=== PATIENT | male | born 1995 | race Hispanic/Latino ===

== ENCOUNTER 2021-09-16 09:08 | Emergency (ER) | payer OTHER ==
[~2021-09-16] VITALS: Ht 177.8 cm; Wt 92.1 kg
[2021-09-16 09:09] VITALS: BP 162/88
== END 2021-09-16 10:10 | disposition home or self-care (01) ==
LOC: M ED 09:08
DX: Z11.52 Encounter for screening for COVID-19 (principal); J06.9 Acute upper respiratory infection, unspecified; Z20.822 Contact with and (suspected) exposure to COVID-19
CPT/HCPCS: 99282; U0003

== ENCOUNTER 2023-01-12 15:46 | Emergency (ER) | payer OTHER ==
[~2023-01-12] VITALS: Ht 170.2 cm; Wt 93.9 kg
[2023-01-12] MEDS ORDERED: KETOROLAC 60MG 2ML VIAL IM ONE (16:25)
[2023-01-12] MEDS ORDERED: diazePAM 10 MG TAB PO ONE (16:25)
[2023-01-12] MEDS ORDERED: LIDOCAINE 5% (LIDODERM) PATCH TD ONE (16:25)
[2023-01-12 16:44] LABS: BASO # 0.1 10^3/uL (0.0-0.2); BASO % 0.6 % (0.0-1.0); EOS # 0.4 10^3/uL (0.0-0.5); EOS % 4.9 % (0.0-3.0); HEMOGLOBIN 15.4 g/dl (13.5-17.5); LYMPH # 2.3 10^3/uL (1.5-5.0); LYMPH % 25.4 % (24.0-44.0); MEAN CORPUSCULAR HEMOGLOBIN 27.3 pg (27.0-33.0); MEAN CORPUSCULAR HGB CONC 32.8 g/dl (32.0-36.5); MEAN CORPUSCULAR VOLUME 83.2 fl (80.0-96.0); MONO # 0.6 10^3/uL (0.0-0.8); NEUTROPHILS # 5.6 10^3/uL (1.5-8.5); NEUTROPHILS % 61.8 % (36.0-66.0); PLATELET COUNT, AUTOMATED 321 10^3/uL (150-450); RED BLOOD COUNT 5.65 10^6/uL (4.30-6.10)
[2023-01-12 17:05] LABS: BLOOD UREA NITROGEN 15 MG/DL (9-23); CALCIUM LEVEL 8.9 MG/DL (8.5-10.1); CARBON DIOXIDE LEVEL 28 MMOL/L (20-31); CHLORIDE LEVEL 104 MMOL/L (98-107); CREATININE FOR GFR 0.89 MG/DL (0.70-1.30); GLOMERULAR FILTRATION RATE > 60.0 (>60); GLUCOSE, FASTING 90 MG/DL (60-100); POTASSIUM SERUM 4.1 MMOL/L (3.5-5.1); SODIUM LEVEL 139 MMOL/L (136-145)
[2023-01-12 17:07] LABS: CPK CREATINE PHOSPHOKINASE 199 U/L (46-171)
[2023-01-12 17:59] VITALS: BP 142/61
[2023-01-12] MEDS ORDERED: METH-1165 PO (18:04)
[2023-01-12] MEDS ORDERED: ASPE4PAD TOP (18:04)
[2023-01-12] MEDS ORDERED: NAPR-837 PO (18:04)
== END 2023-01-12 18:15 | disposition home or self-care (01) ==
LOC: M ED 15:46
DX: S30.810A Abrasion of lower back and pelvis, initial encounter (principal); M54.16 Radiculopathy, lumbar region; M54.17 Radiculopathy, lumbosacral region; Z79.1 Long term (current) use of non-steroidal anti-inflammatories (NSAID); Z79.899 Other long term (current) drug therapy
CPT/HCPCS: 72110; 73502; 80048; 82550; 85025; 96372; 99283; J1885

== ENCOUNTER 2023-02-01 09:27 | Emergency (ER) | payer OTHER ==
[~2023-02-01] VITALS: Ht 170.2 cm; Wt 89.0 kg
[~2023-02-01 09:27] MED LIST: ASPE4PAD TOP; METH-1165 PO; NAPR-837 PO
[2023-02-01] MEDS ORDERED: LIDOCAINE 5% (LIDODERM) PATCH TD ONE (10:35)
[2023-02-01] MEDS ORDERED: NAPR-837 PO (10:37)
[2023-02-01] MEDS ORDERED: CYCL-707 PO (10:37)
[2023-02-01] MEDS ORDERED: NAPROXEN 250 MG TAB PO ONE (10:40)
[2023-02-01 10:54] VITALS: BP 122/81
== END 2023-02-01 11:02 | disposition home or self-care (01) ==
LOC: M ED 09:27
DX: S39.012A Strain of muscle, fascia and tendon of lower back, initial encounter (principal); M51.36 Other intervertebral disc degeneration, lumbar region; M46.97 Unspecified inflammatory spondylopathy, lumbosacral region; Y93.B3 Activity, free weights; Z79.1 Long term (current) use of non-steroidal anti-inflammatories (NSAID); Z79.899 Other long term (current) drug therapy

== ENCOUNTER 2023-12-28 09:51 | Emergency (ER) | payer OTHER ==
[~2023-12-28] VITALS: Ht 172.7 cm; Wt 99.8 kg
[~2023-12-28 09:51] MED LIST changes: +CYCL-707 PO
[2023-12-28] MEDS ORDERED: ACET-683 PO (10:18)
[2023-12-28] MEDS: ACETAMINOPHEN *IV* 1,000 MG in IV 1 EA IV ONE (11:30)
[2023-12-28 12:17] LABS: BASO # 0.1 10^3/uL (0.0-0.2); BASO % 0.7 % (0.0-1.0); EOS # 0.5 10^3/uL (0.0-0.5); EOS % 5.1 % (0.0-3.0); HEMATOCRIT 47.7 % (42.0-52.0); HEMOGLOBIN 15.6 g/dl (13.5-17.5); LYMPH # 2.3 10^3/uL (1.5-5.0); LYMPH % 25.7 % (24.0-44.0); MEAN CORPUSCULAR HEMOGLOBIN 26.9 pg (27.0-33.0); MEAN CORPUSCULAR HGB CONC 32.7 g/dl (32.0-36.5); MEAN CORPUSCULAR VOLUME 82.4 fl (80.0-96.0); MONO # 0.7 10^3/uL (0.0-0.8); MONO % 7.8 % (2.0-8.0); NEUTROPHILS # 5.4 10^3/uL (1.5-8.5); NEUTROPHILS % 60.5 % (36.0-66.0); PLATELET COUNT, AUTOMATED 337 10^3/uL (150-450); RED BLOOD COUNT 5.79 10^6/uL (4.30-6.10)
[2023-12-28 12:24] LABS: ERYTHROCYTE SEDIMENTATION RATE 15 mm/hr (0-15)
[2023-12-28 12:30] LABS: INR 1.02; PARTIAL THROMBOPLASTIN TIME 27.6 SECONDS (24.8-34.2); PROTHROMBIN TIME 13.1 SECONDS (12.5-14.5)
[2023-12-28 12:36] LABS: C REACTIVE PROTEIN QUANTITATIV < 0.40 MG/DL (<1.0)
[2023-12-28 12:37] LABS: BLOOD UREA NITROGEN 11 MG/DL (9-23); CALCIUM LEVEL 9.7 MG/DL (8.5-10.1); CARBON DIOXIDE LEVEL 31 MMOL/L (20-31); CHLORIDE LEVEL 107 MMOL/L (98-107); CK-MB VALUE MASS < 1.0 NG/ML (<3.6); CREATININE FOR GFR 0.89 MG/DL (0.70-1.30); GLOMERULAR FILTRATION RATE > 60.0 (>60); GLUCOSE, FASTING 91 MG/DL (60-100); POTASSIUM SERUM 4.4 MMOL/L (3.5-5.1); SODIUM LEVEL 140 MMOL/L (136-145)
[2023-12-28 12:46] LABS: CPK CREATINE PHOSPHOKINASE 159 U/L (46-171); MB/CK RELATIVE INDEX 0.62 (< OR =4)
[2023-12-28] MEDS ORDERED: NEUR300C PO (13:33)
[2023-12-28 13:42] VITALS: BP 126/82; TEMP 97.6; O2SAT 100
== END 2023-12-28 13:45 | disposition home or self-care (01) ==
LOC: M ED 09:51
DX: R07.89 Other chest pain (principal); M51.26 Other intervertebral disc displacement, lumbar region; M51.27 Other intervertebral disc displacement, lumbosacral region; I49.40 Unspecified premature depolarization; F10.10 Alcohol abuse, uncomplicated; Z88.1 Allergy status to other antibiotic agents; Z88.6 Allergy status to analgesic agent; Z79.891 Long term (current) use of opiate analgesic; Z79.1 Long term (current) use of non-steroidal anti-inflammatories (NSAID)
CPT/HCPCS: 71046; 72131; 80048; 82550; 82553; 84484; 85025; 85610; 85652; 85730; 86140; 93005; 93971; 96374; 99284; J0131

== ENCOUNTER → 2024-01-20 | Outpatient (CLI) | payer OTHER ==
[~2024-01-20] MED LIST changes: +ACET-683 PO; +NEUR300C PO; +PROHANCE 279.3MG/ML 15ML VIAL ONE; +PROHANCE 279.3MG/ML 5ML VIAL ONE
== END ==
LOC: M PLAIMG 14:51
PROVIDERS: ATTEND Physical Medicine & Rehabilitation
DX: M47.897 Other spondylosis, lumbosacral region (principal); M51.26 Other intervertebral disc displacement, lumbar region; M51.27 Other intervertebral disc displacement, lumbosacral region
CPT/HCPCS: 72158; A9576

== ENCOUNTER 2024-02-14 12:57 | Emergency (ER) | payer OTHER ==
[~2024-02-14] VITALS: Ht 172.7 cm; Wt 100.9 kg
[~2024-02-14 12:57] MED LIST changes: -PROHANCE 279.3MG/ML 15ML VIAL ONE; -PROHANCE 279.3MG/ML 5ML VIAL ONE
[2024-02-14] MEDS ORDERED: METH-1164 PO (20:42)
[2024-02-14] MEDS ORDERED: DICL20GE TP (20:43)
[2024-02-14 20:45] VITALS: BP 128/82; TEMP 98; O2SAT 99
== END 2024-02-14 20:52 | disposition home or self-care (01) ==
LOC: M ED 12:57
DX: M62.830 Muscle spasm of back (principal); M62.838 Other muscle spasm; F10.10 Alcohol abuse, uncomplicated; Z88.1 Allergy status to other antibiotic agents; Z88.6 Allergy status to analgesic agent; Z79.1 Long term (current) use of non-steroidal anti-inflammatories (NSAID); Z79.899 Other long term (current) drug therapy

== ENCOUNTER 2024-07-19 20:39 | Emergency (ER) | payer OTHER ==
[~2024-07-19] VITALS: Ht 170.2 cm; Wt 100.1 kg
[~2024-07-19 20:39] MED LIST changes: +DICL20GE TP; +METH-1164 PO
[2024-07-20 00:56] LABS: BASO # 0.1 10^3/uL (0.0-0.2); BASO % 0.8 % (0.0-1.0); EOS # 0.7 10^3/uL (0.0-0.5); EOS % 7.5 % (0.0-3.0); HEMOGLOBIN 15.2 g/dl (13.5-17.5); LYMPH # 2.9 10^3/uL (1.5-5.0); LYMPH % 31.2 % (24.0-44.0); MEAN CORPUSCULAR HEMOGLOBIN 27.2 pg (27.0-33.0); MEAN CORPUSCULAR VOLUME 82.4 fl (80.0-96.0); MONO # 0.9 10^3/uL (0.0-0.8); MONO % 9.4 % (2.0-8.0); NEUTROPHILS # 4.8 10^3/uL (1.5-8.5); NEUTROPHILS % 50.7 % (36.0-66.0); PLATELET COUNT, AUTOMATED 327 10^3/uL (150-450); RED BLOOD COUNT 5.58 10^6/uL (4.30-6.10); WHITE BLOOD COUNT 9.4 10^3/uL (4.0-10.0)
[2024-07-20 01:16] LABS: BLOOD UREA NITROGEN 11 MG/DL (9-23); CALCIUM LEVEL 9.4 MG/DL (8.5-10.1); CARBON DIOXIDE LEVEL 30 MMOL/L (20-31); CHLORIDE LEVEL 106 MMOL/L (98-107); CREATININE FOR GFR 0.96 MG/DL (0.70-1.30); GLOMERULAR FILTRATION RATE > 60.0 (>60); GLUCOSE, FASTING 96 MG/DL (60-100); POTASSIUM SERUM 3.9 MMOL/L (3.5-5.1); SODIUM LEVEL 143 MMOL/L (136-145)
[2024-07-20] MEDS: methylPREDNISolone 125MG 2ML VIAL IM ONE (04:55)
[2024-07-20] MEDS: diazePAM 10MG/2ML SYRINGE IM ONE (04:56)
[2024-07-20 05:17] VITALS: BP 112/56; TEMP 97; O2SAT 97
[2024-07-20] MEDS ORDERED: MEDR4PAK PO (06:01)
[2024-07-20] MEDS ORDERED: CYCL5TAB4 PO (06:04)
== END 2024-07-20 06:14 | disposition home or self-care (01) ==
LOC: M ED 20:39
DX: M54.41 Lumbago with sciatica, right side (principal); M51.361 Other intervertebral disc degeneration, lumbar region with lower extremity pain only; Z79.1 Long term (current) use of non-steroidal anti-inflammatories (NSAID); Z79.899 Other long term (current) drug therapy; Z88.1 Allergy status to other antibiotic agents; Z88.6 Allergy status to analgesic agent
CPT/HCPCS: 72131; 72190; 80048; 85025; 96372; 99283; J2919; J3360

== ENCOUNTER 2024-09-27 21:24 | Emergency (ER) | payer OTHER ==
[~2024-09-27] VITALS: Ht 170.2 cm; Wt 106.4 kg
[~2024-09-27 21:24] MED LIST changes: +CYCL5TAB4 PO; +MEDR4PAK PO
[2024-09-27] MEDS ORDERED: LIDO5DIS41 TOP (23:24)
[2024-09-27] MEDS: KETOROLAC 60MG 2ML VIAL IM ONE (23:37)
[2024-09-27] MEDS: diazePAM 5MG TABLET PO ONE (23:37)
[2024-09-27 23:49] VITALS: BP 129/70; TEMP 97.1; O2SAT 98
== END 2024-09-27 23:54 | disposition home or self-care (01) ==
LOC: M ED 21:24
DX: M54.31 Sciatica, right side (principal); M54.50 Low back pain, unspecified; Z88.1 Allergy status to other antibiotic agents; Z88.6 Allergy status to analgesic agent; Z79.1 Long term (current) use of non-steroidal anti-inflammatories (NSAID); Z79.899 Other long term (current) drug therapy
CPT/HCPCS: 96372; 99283; J1885